=== PATIENT | male | born 1985 | race Caucasian/White ===

== ENCOUNTER 2019-08-12 22:43 | Emergency (ER) | payer OTHER ==
[~2019-08-12] VITALS: Ht 172.7 cm; Wt 81.7 kg
[2019-08-12 23:36] LABS: ABSOLUTE BASOPHILS 0.1 thou/uL (0.0-0.2); ABSOLUTE EOSINOPHILS 0.1 thou/uL (0.0-0.7); ABSOLUTE LYMPHOCYTES 2.3 thou/uL (0.8-5.3); ABSOLUTE MONOCYTES 0.4 thou/uL (0.0-1.2); ABSOLUTE NEUTROPHILS 3.7 thou/uL (1.6-8.1); EOSINOPHILS 1.5 %; HEMATOCRIT 45.8 % (42.0-52.0); HEMOGLOBIN 16.2 gm/dL (14.0-18.0); LYMPHOCYTES 35.6 %; MCH 31.5 pg (26.0-34.0); MCHC 35.5 g/dL (28.0-37.0); MCV 88.7 fL (80.0-100.0); MONOCYTES 6.7 %; MPV 8.3 fl. (7.2-11.1); NUCLEATED RBCS 0 /100WBC; PLATELET COUNT* 331 thou/uL (150-400); POLYS 55.2 %; RBC 5.16 mil/uL (4.50-6.00); RDW-CV 12.7 % (10.5-14.5); WBC 6.6 thou/uL (4.0-11.0)
[2019-08-12 23:38] LABS: CALCIUM 8.5 mg/dL (8.5-10.1); POTASSIUM 3.4 mmol/L (3.5-5.1)
[2019-08-12 23:43] LABS: ALBUMIN 4.5 g/dL (3.4-5.0); TOTAL BILIRUBIN 0.3 mg/dL (<0.1-1.0); TOTAL PROTEIN 8.2 g/dL (6.4-8.2)
[2019-08-12 23:52] LABS: ALCOHOL 239 mg/dL (<10); SALICYLATE < 2.8 mg/dL (2.8-20.0)
[2019-08-12 23:54] LABS: ACETAMINOPHEN < 2 ug/mL (10-30)
[2019-08-13 00:41] LABS: URINE BILIRUBIN NEGATIVE (Negative); URINE BLOOD TRACE (Negative); URINE CLARITY CLEAR; URINE COLOR YELLOW; URINE GLUCOSE-RANDOM NEGATIVE (Negative); URINE KETONES NEGATIVE (Negative); URINE LEUKOCYTES-REFLEX NEGATIVE (Negative); URINE NITRITE-REFLEX NEGATIVE (Negative); URINE PROTEIN 1+ (Negative); URINE UROBILINOGEN 0.2 E.U./dl (0.2-1.0)
[2019-08-13 00:47] LABS: AMP/METHAMP Negative (Negative); BARBITURATES Negative (Negative); BENZODIAZEPINES Negative (Negative); COCAINE Negative (Negative); METHADONE Negative (Negative); OPIATES Negative (Negative); PCP Negative (Negative); THC Negative (Negative)
[2019-08-13 03:58] VITALS: BP 117/74
--- NOTE | 2019-08-13 10:33 | EKG ---
[place] [address] ELECTROCARDIOGRAM REPORT Name: JOSE MANUEL ENG Room: [facility]#: [id number] Admission: 08/12/19 Attend Phys: Discharge: 08/13/19 Date of : 83 Date of Service: 08/12/193 Report #: [id number] THIS REPORT FOR: //name// [facility] ED Test Date: 2019-08-12 Test Time: 23:13:45 Pat Name: JOSE MANUEL ENG Department: Room: Gender: [employer] Developer: : 1985 Requested By: Jose Manuel Greenberg Order Number: [id number] MD: Kiran Negrete Measurements Intervals [place] Rate: 91 P: 71 CT: 150 QRS: 66 QRSD: 98 T: 54 QT: 353 QTc: 435 Interpretive Statements Sinus rhythm Baseline wander in lead(s) V1 No previous ECG available for comparison Electronically Signed On 08-13-2019 10:32:10 CDT by Kiran Negrete [email or web address] <ELECTRONICALLY SIGNED> By: Kiran Negrete MD, [facility] 08/13/19 1032 2313 12 Kiran Negrete MD, FACC /EPI
== END 2019-08-13 04:00 | disposition home or self-care (01) ==
LOC: M.ERS 22:43
PROVIDERS: Family Medicine
DX: F32.9 Major depressive disorder, single episode, unspecified (principal); F10.129 Alcohol abuse with intoxication, unspecified; R11.2 Nausea with vomiting, unspecified; F17.210 Nicotine dependence, cigarettes, uncomplicated; Y90.7 Blood alcohol level of 200-239 mg/100 ml

== ENCOUNTER 2019-12-21 22:38 | Emergency (ER) | payer OTHER ==
[~2019-12-21] VITALS: Ht 203.2 cm; Wt 83.9 kg
[2019-12-21 23:12] LABS: URINE BILIRUBIN NEGATIVE (Negative); URINE BLOOD NEGATIVE (Negative); URINE CLARITY CLEAR; URINE COLOR YELLOW; URINE GLUCOSE-RANDOM NEGATIVE (Negative); URINE KETONES NEGATIVE (Negative); URINE LEUKOCYTES-REFLEX NEGATIVE (Negative); URINE NITRITE-REFLEX NEGATIVE (Negative); URINE PROTEIN NEGATIVE (Negative); URINE UROBILINOGEN 0.2 E.U./dl (0.2-1.0)
[2019-12-21 23:20] LABS: AMP/METHAMP Negative (Negative); BARBITURATES Negative (Negative); BENZODIAZEPINES Negative (Negative); COCAINE Negative (Negative); METHADONE Negative (Negative); OPIATES Negative (Negative); PCP Negative (Negative); THC POSITIVE (Negative)
[2019-12-21 23:34] LABS: ABSOLUTE BASOPHILS 0.1 thou/uL (0.0-0.2); ABSOLUTE EOSINOPHILS 0.1 thou/uL (0.0-0.7); ABSOLUTE LYMPHOCYTES 1.5 thou/uL (0.8-5.3); ABSOLUTE NEUTROPHILS 4.4 thou/uL (1.6-8.1); BASOPHILS 0.7 %; EOSINOPHILS 0.9 %; HEMATOCRIT 43.1 % (42.0-52.0); HEMOGLOBIN 15.1 gm/dL (14.0-18.0); LYMPHOCYTES 21.4 %; MCH 31.4 pg (26.0-34.0); MCV 89.7 fL (80.0-100.0); MONOCYTES 14.8 %; MPV 8.2 fl. (7.2-11.1); NUCLEATED RBCS 0 /100WBC; PLATELET COUNT* 261 thou/uL (150-400); POLYS 62.2 %; RDW-CV 13.2 % (10.5-14.5)
[2019-12-21 23:39] LABS: CALCIUM 8.6 mg/dL (8.5-10.1); CREATININE 1.1 mg/dL (0.6-1.3); POTASSIUM 3.5 mmol/L (3.5-5.1)
[2019-12-21 23:48] LABS: ALCOHOL 257 mg/dL (<10); SALICYLATE < 2.8 mg/dL (2.8-20.0)
[2019-12-21 23:49] LABS: ACETAMINOPHEN < 2 ug/mL (10-30); ALBUMIN 4.4 g/dL (3.4-5.0); TOTAL BILIRUBIN 0.3 mg/dL (<0.1-1.0)
[2019-12-22 03:48] VITALS: BP 0/0
== END 2019-12-22 03:50 | disposition home or self-care (01) ==
LOC: M.ERS 22:38
PROVIDERS: Family Medicine
DX: F32.9 Major depressive disorder, single episode, unspecified (principal); F10.129 Alcohol abuse with intoxication, unspecified; F17.210 Nicotine dependence, cigarettes, uncomplicated; Z20.828 Contact with and (suspected) exposure to other viral communicable diseases; Y90.8 Blood alcohol level of 240 mg/100 ml or more

== ENCOUNTER 2020-03-16 01:35 | Emergency (ER) | payer OTHER ==
[~2020-03-16] VITALS: Ht 172.7 cm; Wt 87.1 kg
[2020-03-16 01:48] LABS: URINE BILIRUBIN NEGATIVE (Negative); URINE BLOOD NEGATIVE (Negative); URINE CLARITY CLEAR; URINE COLOR YELLOW; URINE GLUCOSE-RANDOM NEGATIVE (Negative); URINE KETONES NEGATIVE (Negative); URINE LEUKOCYTES-REFLEX NEGATIVE (Negative); URINE NITRITE-REFLEX NEGATIVE (Negative); URINE PROTEIN NEGATIVE (Negative); URINE UROBILINOGEN 0.2 E.U./dl (0.2-1.0)
[2020-03-16 01:57] LABS: AMP/METHAMP Negative (Negative); BARBITURATES Negative (Negative); BENZODIAZEPINES Negative (Negative); COCAINE Negative (Negative); METHADONE Negative (Negative); OPIATES Negative (Negative); PCP Negative (Negative); THC POSITIVE (Negative)
[2020-03-16 02:03] LABS: ABSOLUTE EOSINOPHILS 0.1 thou/uL (0.0-0.7); ABSOLUTE LYMPHOCYTES 2.4 thou/uL (0.8-5.3); ABSOLUTE MONOCYTES 0.5 thou/uL (0.0-1.2); ABSOLUTE NEUTROPHILS 4.2 thou/uL (1.6-8.1); BASOPHILS 0.6 %; EOSINOPHILS 1.7 %; HEMATOCRIT 44.3 % (42.0-52.0); HEMOGLOBIN 15.1 gm/dL (14.0-18.0); LYMPHOCYTES 33.5 %; MCH 30.2 pg (26.0-34.0); MCHC 34.2 g/dL (28.0-37.0); MCV 88.4 fL (80.0-100.0); MONOCYTES 6.3 %; NUCLEATED RBCS 0 /100WBC; PLATELET COUNT* 327 thou/uL (150-400); POLYS 57.9 %; RBC 5.01 mil/uL (4.50-6.00); RDW-CV 12.6 % (10.5-14.5); WBC 7.3 thou/uL (4.0-11.0)
[2020-03-16 02:06] LABS: CALCIUM 8.3 mg/dL (8.5-10.1); POTASSIUM 3.9 mmol/L (3.5-5.1)
[2020-03-16 02:10] LABS: ALBUMIN 4.4 g/dL (3.4-5.0); TOTAL BILIRUBIN 0.2 mg/dL (<0.1-1.0)
[2020-03-16 02:14] LABS: BE -4.6 mmol/L (-2 to +3); PCO2 38.2 mmHg (35.0-45.0); PO2 92.9 mmHg (75.0-100.0); pH 7.348 (7.340-7.450)
[2020-03-16 02:17] LABS: ACETAMINOPHEN < 2 ug/mL (10-30); ALCOHOL 272 mg/dL (<10); SALICYLATE 2.8 mg/dL (2.8-20.0)
[2020-03-16 12:20] VITALS: BP 130/75
--- NOTE | 2020-03-16 12:52 | EKG ---
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[place] : 1985 Requested By: Erich Gardner Order Number: [id number] MD: Nathan Vega Measurements Intervals [place] Rate: 89 P: 44 [place]: 150 QRS: 30 QRSD: 94 T: 24 QT: 345 QTc: 420 Interpretive Statements Sinus rhythm Baseline wander in lead(s) V1 Compared to ECG 08/12/2019 23:13:45 No significant changes Electronically Signed On 03-16-2020 12:52:37 CARBURIZING FURNACE OPERATOR by Nathan Vega [email or web address] <ELECTRONICALLY SIGNED> By: Nathan Vega MD, [facility] 03/16/20 1252 0145 0145 Nathan Vega MD, [facility] /EPI
== END 2020-03-16 12:20 ==
LOC: M.ERS 01:35
PROVIDERS: Emergency Medicine Emergency Medical Services
DX: F32.9 Major depressive disorder, single episode, unspecified (principal); F10.129 Alcohol abuse with intoxication, unspecified; Y90.8 Blood alcohol level of 240 mg/100 ml or more; R45.851 Suicidal ideations; Z20.828 Contact with and (suspected) exposure to other viral communicable diseases

== ENCOUNTER 2021-05-05 08:36 | Emergency (ER) | payer OTHER ==
[~2021-05-05] VITALS: Ht 172.7 cm; Wt 79.4 kg
[2021-05-05 09:16] LABS: INFLUENZA A ANTIGEN Negative (Negative); INFLUENZA B ANTIGEN Negative (Negative)
[2021-05-05] MEDS ORDERED: DEXAMETHASONE 44 M1 PO ×2 (10:15→10:47)
[2021-05-05] MEDS ORDERED: ZOFRAN ODT4 MG DISSOLVE ×2 (10:15→10:47)
[2021-05-05 10:21] VITALS: BP 123/54
--- NOTE | 2021-05-05 12:55 | EKG ---
[place] [address] ELECTROCARDIOGRAM REPORT Name: JOSE MANUEL ENG Room: [facility]#: [id number] Admission: 05/05/21 Attend Phys: Discharge: 05/05/21 Date of : 83 Date of Service: 05/05/21 0837 Report #: [id number] THIS REPORT FOR: //name// [facility] ED Test Date: 2021-05-05 Test Time: 08:37:16 Pat Name: JOSE MANUEL ENG Department: Room: Gender: [place] Roofer: : 1985 Requested By: Jose Manuel Greenberg Order Number: [id number] MD: Nathan Vega Measurements Intervals [place] Rate: 93 P: 73 GA: 138 QRS: 51 QRSD: 89 T: 53 QT: 344 QTc: 428 Interpretive Statements Sinus rhythm Baseline wander in lead(s) V1 Compared to ECG 03/16/2020 01:45:04 No significant changes Electronically Signed On 05-05-2021 12:55:42 ENGRAVER RUBBER by Nathan Vega [email or web address] <ELECTRONICALLY SIGNED> By: Nathan Vega MD, [facility] 05/05/21 5816 0837 0837 Nathan Vega MD, [facility] /EPI
== END 2021-05-05 10:22 | disposition home or self-care (01) ==
LOC: M.ERS 08:36
PROVIDERS: Family Medicine
DX: U07.1 COVID-19 (principal); R11.2 Nausea with vomiting, unspecified; F17.210 Nicotine dependence, cigarettes, uncomplicated